=== PATIENT | male | born 1955 | race Caucasian/White ===

== ENCOUNTER 2024-04-14 11:50 | Emergency (ER) | payer MEDICAID ==
[~2024-04-14] VITALS: Ht 172.7 cm; Wt 72.6 kg
[2024-04-14 13:29] LABS: *BILIRUBIN,URIN NEGATIVE (NEGATIVE); *BLOOD, URINE NEGATIVE (NEGATIVE); *CLARITY,URINE CLEAR (CLEAR); *COLOR,URINE YELLOW (YELLOW); *KETONES,URINE NEGATIVE (NEGATIVE); *PROTEIN,URINE NEGATIVE (NEGATIVE); *UROBILINOGEN,URINE 0.2 E.U./dl (NORMAL); LEUKOCYTE ESTERASE ,URINE NEGATIVE (NEGATIVE); NITRITE, URINE NEGATIVE (NEGATIVE); UGLUCOSE NEGATIVE (NEGATIVE)
[2024-04-14] MEDS ORDERED: SULF1TAB48 PO (13:57)
[2024-04-14] MEDS ORDERED: TRAM50TA2 PO (14:00)
[2024-04-14 14:27] VITALS: BP 146/89; O2SAT 97
== END 2024-04-14 14:28 | disposition home or self-care (01) ==
LOC: ER 11:50
DX: M48.061 Spinal stenosis, lumbar region without neurogenic claudication (principal); L08.9 Local infection of the skin and subcutaneous tissue, unspecified; Z79.899 Other long term (current) drug therapy; Z88.0 Allergy status to penicillin
CPT/HCPCS: A4606; A4663

== ENCOUNTER 2024-04-30 14:58 | Emergency (ER) | payer MEDICAID, OTHER ==
[~2024-04-30] VITALS: Ht 170.2 cm; Wt 77.1 kg
[~2024-04-30 14:58] MED LIST: SULF1TAB48 PO; TRAM50TA2 PO
[2024-04-30] MEDS ORDERED: SUCR1TAB31 PO (15:45)
[2024-04-30] MEDS ORDERED: TAMS-3 PO (15:45)
[2024-04-30] MEDS ORDERED: NITR100C12 PO (15:45)
[2024-04-30 15:48] LABS: BASOPHILS % (AUTO) 0.5 % (0.0-2.0); EOSINOPHILS # (AUTO) 0.1 K/uL (0.0-0.7); EOSINOPHILS % (AUTO) 0.9 % (0.0-7.0); HEMATOCRIT 37.4 % (36.7-47.1); HEMOGLOBIN 12.6 g/dL (12.5-16.3); LYMPHOCYTES # (AUTO) 1.7 K/uL (0.8-4.8); LYMPHOCYTES % (AUTO) 24.6 % (20.5-51.5); MEAN CORPUSCULAR HEMOGLOBIN 31.1 uug (23.8-33.4); MEAN CORPUSCULAR HGB CONC 34 g/dL (32.5-36.3); MEAN CORPUSCULAR VOLUME 92.1 fL (73.0-96.2); MONOCYTES # (AUTO) 0.4 K/uL (0.1-1.30); MONOCYTES % (AUTO) 5.4 % (0.0-11.0); NEUTROPHILS # (AUTO) 4.8 K/uL (1.8-8.9); NEUTROPHILS % (AUTO) 68.6 % (38.5-71.5); PLATELET COUNT (AUTO) 315 K/uL (152-348); RED BLOOD CELL COUNT(AUTO) 4.06 MIL/uL (4.06-5.63); RED CELL DISTRIBUTION WIDTH 15.5 % (12.1-16.2)
[2024-04-30 15:56] LABS: DIFFERENTIAL COMMENT 1
[2024-04-30 15:59] LABS: CALCIUM 8.7 mg/dL (8.5-10.1); POTASSIUM 3.2 mmol/L (3.5-5.1)
[2024-04-30 16:02] LABS: *BILIRUBIN,URIN NEGATIVE (NEGATIVE); *BLOOD, URINE NEGATIVE (NEGATIVE); *CLARITY,URINE CLEAR (CLEAR); *COLOR,URINE YELLOW (YELLOW); *KETONES,URINE NEGATIVE (NEGATIVE); *PROTEIN,URINE 1+ (NEGATIVE); *UROBILINOGEN,URINE 0.2 E.U./dl (NORMAL); LEUKOCYTE ESTERASE ,URINE NEGATIVE (NEGATIVE); NITRITE, URINE NEGATIVE (NEGATIVE); UGLUCOSE NEGATIVE (NEGATIVE)
[2024-04-30 16:05] LABS: ALBUMIN 3.7 g/dL (3.4-5.0); BILIRUBIN,TOTAL 0.4 mg/dL (0.2-1.0); TOTAL PROTEIN, SERUM 6.8 g/dL (6.4-8.2)
[2024-04-30 16:19] LABS: BACTERIA,URINE FEW /HPF (NONE SEEN); SQUAMOUS EPITHELIAL CELL,UR FEW /HPF (NONE SEEN)
[2024-04-30] MEDS ORDERED: POTASSIUM CHLORIDE 20 MEQ TAB.PRT.SR ONE (16:27)
[2024-04-30] MEDS: POTASSIUM CHLORIDE 20 MEQ TAB.PRT.SR PO ONE (16:33)
[2024-04-30] MEDS ORDERED: TRAM50TA2 PO (16:40)
[2024-04-30] MEDS ORDERED: DIPH1TAB PO (16:40)
[2024-04-30 17:14] VITALS: BP 145/82; O2SAT 99
== END 2024-04-30 16:55 | disposition home or self-care (01) ==
LOC: ER 14:59
DX: M54.50 Low back pain, unspecified (principal); G89.29 Other chronic pain; E87.6 Hypokalemia; R19.7 Diarrhea, unspecified; J45.909 Unspecified asthma, uncomplicated; Z88.0 Allergy status to penicillin
CPT/HCPCS: 36415; 85025; A4606; A4663

== ENCOUNTER 2024-05-11 09:31 | Emergency (ER) | payer OTHER ==
[~2024-05-11] VITALS: Ht 170.2 cm; Wt 63.5 kg
[~2024-05-11 09:31] MED LIST changes: +DIPH1TAB PO; +NITR100C12 PO; +SUCR1TAB31 PO; +TAMS-3 PO
[2024-05-11] MEDS ORDERED: CEFTRIAXONE /D5W 50ML IVPB **ER PYXIS IV ONE (10:09)
[2024-05-11] MEDS ORDERED: AZITHROMYCIN 250 MG TABLET ONE ×2 (10:10→10:19)
[2024-05-11] MEDS: AZITHROMYCIN 250 MG TABLET PO ONE (10:32)
[2024-05-11] MEDS: CEFTRIAXONE 1 G in IV DEXTROSE 5% 50 ML IV ONE (10:39)
[2024-05-11] MEDS: IV NORMAL SALINE 1000 ML BAG IV ONE (10:39)
[2024-05-11 10:40] LABS: *BILIRUBIN,URIN NEGATIVE (NEGATIVE); *CLARITY,URINE CLEAR (CLEAR); *COLOR,URINE YELLOW (YELLOW); *KETONES,URINE NEGATIVE (NEGATIVE); *PROTEIN,URINE NEGATIVE (NEGATIVE); *UROBILINOGEN,URINE 0.2 E.U./dl (NORMAL); LEUKOCYTE ESTERASE ,URINE NEGATIVE (NEGATIVE); NITRITE, URINE NEGATIVE (NEGATIVE); UGLUCOSE NEGATIVE (NEGATIVE)
[2024-05-11 10:57] LABS: ALANINE AMINOTRANSFERASE 36 U/L (16-63); ALBUMIN 3.7 g/dL (3.4-5.0); ALKALINE PHOSPHATASE 121 U/L (50-136); ASPARTATE AMINOTRANSFERASE 27 U/L (15-37); BILIRUBIN,DIRECT 0.1 mg/dL (0.0-0.2); BILIRUBIN,TOTAL 0.6 mg/dL (0.2-1.0); CALCIUM 8.5 mg/dL (8.5-10.1); CARBON DIOXIDE 25 mmol/L (21-32); CHLORIDE 108 mmol/L (98-107); CREATININE 0.7 mg/dL (0.6-1.3); GLUCOSE 95 mg/dL (74-106); NT-PRO BNP 61 pg/mL (0-125); POTASSIUM 3.4 mmol/L (3.5-5.1); SODIUM SERUM 141 mmol/L (136-145); UREA NITROGEN, BLOOD 11 mg/dL (7-18)
[2024-05-11 11:04] LABS: *BLOOD, URINE TRACE (NEGATIVE)
[2024-05-11 11:08] LABS: BASOPHILS % (AUTO) 0.6 % (0.0-2.0); EOSINOPHILS % (AUTO) 0.9 % (0.0-7.0); HEMOGLOBIN 12.6 g/dL (12.5-16.3); LYMPHOCYTES # (AUTO) 1.1 K/uL (0.8-4.8); LYMPHOCYTES % (AUTO) 22.8 % (20.5-51.5); MEAN CORPUSCULAR HEMOGLOBIN 31.7 uug (23.8-33.4); MEAN CORPUSCULAR HGB CONC 34 g/dL (32.5-36.3); MEAN CORPUSCULAR VOLUME 92.8 fL (73.0-96.2); MONOCYTES # (AUTO) 0.3 K/uL (0.1-1.30); MONOCYTES % (AUTO) 5.5 % (0.0-11.0); NEUTROPHILS # (AUTO) 3.5 K/uL (1.8-8.9); NEUTROPHILS % (AUTO) 70.2 % (38.5-71.5); PLATELET COUNT (AUTO) 279 K/uL (152-348); RED BLOOD CELL COUNT(AUTO) 3.99 MIL/uL (4.06-5.63); RED CELL DISTRIBUTION WIDTH 15.3 % (12.1-16.2); WHITE BLOOD COUNT (AUTO) 4.9 K/uL (3.6-10.2)
[2024-05-11 11:19] LABS: DIFFERENTIAL COMMENT 1
[2024-05-11] MEDS ORDERED: DEXAMETHASONE SOD PHOSPHATE 4 MG INJ ONE (11:30)
[2024-05-11] MEDS: DEXAMETHASONE SOD PHOSPHATE 4 MG INJ IV ONE (11:31)
[2024-05-11] MEDS ORDERED: AZIT500T PO (11:45)
[2024-05-11] MEDS ORDERED: PRED50TA PO (11:45)
[2024-05-11 11:56] VITALS: BP 125/69; O2SAT 98
[2024-05-11 13:10] LABS: RBC,URINE 0-3 /HPF (0-3)
[2024-05-11 13:11] LABS: BACTERIA,URINE FEW /HPF (NONE SEEN); SQUAMOUS EPITHELIAL CELL,UR FEW /HPF (NONE SEEN); URINE AMORPHOUS URATE MODERATE /HPF; WBC,URINE 0-3 /HPF (0-3)
[2024-05-12] MEDS ORDERED: OXYC-128 PO (11:43)
== END 2024-05-11 11:53 | disposition home or self-care (01) ==
LOC: ER 09:31
DX: J18.9 Pneumonia, unspecified organism (principal); G89.29 Other chronic pain; M54.9 Dorsalgia, unspecified; R06.02 Shortness of breath; J45.909 Unspecified asthma, uncomplicated; Z20.822 Contact with and (suspected) exposure to COVID-19; Z79.52 Long term (current) use of systemic steroids; Z88.0 Allergy status to penicillin
CPT/HCPCS: 99285; 96365; 71045; 96375; 87426; 87804; 80076; 80048; 81001; 83880; 85025; 84145; 85730; 87040 ×2; 84484; 36415; 93005; 83605; J0696; J1100; J7040; A4606; A4663; Q0144

== ENCOUNTER 2024-05-12 10:23 | Emergency (ER) | payer OTHER ==
[~2024-05-12] VITALS: Ht 165.1 cm; Wt 63.5 kg
[~2024-05-12 10:23] MED LIST changes: +AZIT500T PO; +PRED50TA PO
[2024-05-12] MEDS: OXYCODONE/APAP 5-325 MG TABLET PO ONE (11:35)
[2024-05-12] MEDS ORDERED: OXYCODONE/APAP 5-325 MG TABLET ONE (11:35)
[2024-05-12] MEDS ORDERED: OXYC-128 PO (11:43)
[2024-05-12 13:00] VITALS: BP 147/78; O2SAT 99
== END 2024-05-12 13:01 | disposition home or self-care (01) ==
LOC: ER 10:23
DX: M48.061 Spinal stenosis, lumbar region without neurogenic claudication (principal); M54.50 Low back pain, unspecified; J45.909 Unspecified asthma, uncomplicated; Z79.52 Long term (current) use of systemic steroids; Z79.899 Other long term (current) drug therapy; Z88.0 Allergy status to penicillin
CPT/HCPCS: 98960; A4606; A4663

== ENCOUNTER 2024-12-17 12:13 | Emergency (ER) | payer OTHER ==
[~2024-12-17] VITALS: Ht 165.1 cm; Wt 68.0 kg
[~2024-12-17 12:13] MED LIST changes: +CLIN300C12 PO; +CYCL5TAB PO; +IBUP-1955 PO; +LIDO30AD10 TP; +METH4TAB3 PO; +OXYC-128 PO
[2024-12-17] MEDS ORDERED: KETOROLAC TROMETHAMINE 15 MG INJ ONE (12:59)
[2024-12-17] MEDS: KETOROLAC TROMETHAMINE 15 MG INJ IM ONE (13:26)
[2024-12-17] MEDS ORDERED: TRAM50TA2 PO (13:58)
[2024-12-17 14:15] VITALS: BP 138/80; TEMP 97; O2SAT 96
== END 2024-12-17 14:16 | disposition home or self-care (01) ==
LOC: ER 12:21
DX: M54.42 Lumbago with sciatica, left side (principal); M54.41 Lumbago with sciatica, right side; G89.29 Other chronic pain; I10 Essential (primary) hypertension; I25.10 Atherosclerotic heart disease of native coronary artery without angina pectoris; J45.909 Unspecified asthma, uncomplicated; Z79.52 Long term (current) use of systemic steroids; Z79.899 Other long term (current) drug therapy; Z88.0 Allergy status to penicillin
CPT/HCPCS: 99285; 74176; 96372; J1885; A4606; A4663

== ENCOUNTER 2024-12-21 06:25 | Emergency (ER) | payer OTHER ==
[~2024-12-21] VITALS: Ht 172.7 cm; Wt 83.9 kg
[2024-12-21 07:44] LABS: BASOPHILS % (AUTO) 0.4 % (0.0-2.0); EOSINOPHILS % (AUTO) 0.1 % (0.0-7.0); HEMATOCRIT 36.6 % (36.7-47.1); HEMOGLOBIN 12.7 g/dL (12.5-16.3); LYMPHOCYTES # (AUTO) 1.1 K/uL (0.8-4.8); LYMPHOCYTES % (AUTO) 14.2 % (20.5-51.5); MEAN CORPUSCULAR HEMOGLOBIN 31.8 uug (23.8-33.4); MEAN CORPUSCULAR HGB CONC 35 g/dL (32.5-36.3); MEAN CORPUSCULAR VOLUME 91.8 fL (73.0-96.2); MONOCYTES # (AUTO) 0.5 K/uL (0.1-1.30); MONOCYTES % (AUTO) 6.2 % (0.0-11.0); NEUTROPHILS # (AUTO) 6.2 K/uL (1.8-8.9); NEUTROPHILS % (AUTO) 79.1 % (38.5-71.5); PLATELET COUNT (AUTO) 292 K/uL (152-348); RED BLOOD CELL COUNT(AUTO) 3.98 MIL/uL (4.06-5.63); RED CELL DISTRIBUTION WIDTH 15.1 % (12.1-16.2); WHITE BLOOD COUNT (AUTO) 7.9 K/uL (3.6-10.2)
[2024-12-21 07:48] LABS: DIFFERENTIAL COMMENT 1
[2024-12-21 07:51] LABS: CALCIUM 9.5 mg/dL (8.5-10.1); CARBON DIOXIDE 22 mmol/L (21-32); CHLORIDE 108 mmol/L (98-107); CREATININE 0.9 mg/dL (0.6-1.3); GLUCOSE 111 mg/dL (74-106); POTASSIUM 4.2 mmol/L (3.5-5.1); SODIUM SERUM 142 mmol/L (136-145); UREA NITROGEN, BLOOD 24 mg/dL (7-18)
[2024-12-21 07:58] LABS: ALANINE AMINOTRANSFERASE 54 U/L (16-63); ALKALINE PHOSPHATASE 144 U/L (50-136); ASPARTATE AMINOTRANSFERASE 28 U/L (15-37); BILIRUBIN,DIRECT 0.2 mg/dL (0.0-0.2); BILIRUBIN,TOTAL 0.6 mg/dL (0.2-1.0); TOTAL PROTEIN, SERUM 7.5 g/dL (6.4-8.2)
[2024-12-21] MEDS ORDERED: ASPI81TA31 PO (08:38)
[2024-12-21] MEDS ORDERED: ACET-2812 PO (08:38)
[2024-12-21] MEDS ORDERED: FAMO20TA8 PO (08:38)
[2024-12-21] MEDS ORDERED: CLOP75TA15 PO (08:38)
[2024-12-21] MEDS ORDERED: ISOS30TA86 PO (08:38)
[2024-12-21] MEDS ORDERED: PRED20TA PO (08:38)
[2024-12-21] MEDS ORDERED: CARB10DR5 OP (08:38)
[2024-12-21] MEDS ORDERED: CYCL5TAB PO (08:38)
[2024-12-21] MEDS ORDERED: EMPA10TA PO (08:38)
[2024-12-21] MEDS ORDERED: OXYC5CAP18 PO (08:38)
[2024-12-21] MEDS ORDERED: LOSA25TA27 PO (08:38)
[2024-12-21] MEDS ORDERED: NAPR-1009 PO (08:38)
[2024-12-21] MEDS ORDERED: ATOR80TA PO (08:38)
[2024-12-21] MEDS ORDERED: IBUP-1490 PO (08:38)
[2024-12-21] MEDS ORDERED: SPIR25TA6 PO (08:38)
[2024-12-21] MEDS ORDERED: CARV3.122 PO (08:38)
[2024-12-21] MEDS ORDERED: CLIN300C12 PO (08:38)
[2024-12-21] MEDS ORDERED: METH-807 PO (08:38)
[2024-12-21] MEDS ORDERED: LIDO30AD10 TP (08:38)
[2024-12-21] MEDS ORDERED: GABA300C PO (08:38)
[2024-12-21] MEDS ORDERED: DULO30CA2 PO (08:38)
[2024-12-21] MEDS ORDERED: diphenhydrAMINE 50 MG/1 ML VIAL ONE ×2 (09:17→12:25)
[2024-12-21] MEDS ORDERED: MORPHINE SULFATE 4 MG/1 ML DISP.SYRIN ONE (09:18)
[2024-12-21] MEDS: diphenhydrAMINE 50 MG/1 ML VIAL IM ONE (09:23)
[2024-12-21] MEDS: MORPHINE SULFATE 4 MG/1 ML DISP.SYRIN IM ONE (09:24)
[2024-12-21 09:25] LABS: *BILIRUBIN,URIN NEGATIVE (NEGATIVE); *BLOOD, URINE NEGATIVE (NEGATIVE); *CLARITY,URINE CLEAR (CLEAR); *COLOR,URINE YELLOW (YELLOW); *KETONES,URINE NEGATIVE (NEGATIVE); *PROTEIN,URINE TRACE (NEGATIVE); *UROBILINOGEN,URINE 0.2 E.U./dl (NORMAL); LEUKOCYTE ESTERASE ,URINE NEGATIVE (NEGATIVE); NITRITE, URINE NEGATIVE (NEGATIVE); UGLUCOSE 3+ (NEGATIVE)
[2024-12-21 09:26] LABS: BACTERIA,URINE FEW /HPF (NONE SEEN); WBC,URINE 0-3 /HPF (0-3)
[2024-12-21] MEDS: IV NORMAL SALINE 1000 ML BAG IV ONE (11:55)
[2024-12-21] MEDS ORDERED: KETOROLAC TROMETHAMINE 15 MG INJ ONE (12:01)
[2024-12-21] MEDS ORDERED: METOCLOPRAMIDE HCL 10 MG/2 ML VIAL ONE (12:01)
[2024-12-21] MEDS: KETOROLAC TROMETHAMINE 15 MG INJ IVP ONE (12:05)
[2024-12-21] MEDS: METOCLOPRAMIDE HCL 10 MG/2 ML VIAL IV ONE (12:05)
[2024-12-21] MEDS: diphenhydrAMINE 50 MG/1 ML VIAL IV ONE (12:30)
[2024-12-21] MEDS ORDERED: HYDROCORTISONE SOD SUCCINATE 100 MG/2 ML VIAL IV ONE (12:32)
[2024-12-21] MEDS ORDERED: SWABABLE VALVE TRANSFER SET EA MC ONE (12:33)
[2024-12-21] MEDS ORDERED: IOHEXOL 350 100 ML INFUS..BTL ONE (12:33)
[2024-12-21] MEDS: HYDROCORTISONE SOD SUCCINATE 100 MG/2 ML VIAL IV ONE (12:33)
[2024-12-21] MEDS ORDERED: IV NORMAL SALINE 250 ML IV ONE (12:34)
[2024-12-21 15:46] VITALS: BP 134/75; O2SAT 97
== END 2024-12-21 15:30 | disposition home or self-care (01) ==
LOC: ER 06:25
DX: R51.9 Headache, unspecified (principal); R42 Dizziness and giddiness; G89.29 Other chronic pain; M54.42 Lumbago with sciatica, left side; M54.41 Lumbago with sciatica, right side; M54.2 Cervicalgia; I10 Essential (primary) hypertension; J45.909 Unspecified asthma, uncomplicated; Z79.02 Long term (current) use of antithrombotics/antiplatelets; Z79.52 Long term (current) use of systemic steroids; Z79.82 Long term (current) use of aspirin; Z79.84 Long term (current) use of oral hypoglycemic drugs; Z79.899 Other long term (current) drug therapy; Z88.0 Allergy status to penicillin; Z88.5 Allergy status to narcotic agent; Z91.041 Radiographic dye allergy status; Z95.5 Presence of coronary angioplasty implant and graft; Z87.19 Personal history of other diseases of the digestive system
CPT/HCPCS: 99285; 70496; 96374; 96375; 71045; 80076; 80048; 81001; 85025; 85730; 87086; 84484; 36415; 70498; 93005; 96372 ×2; 70450; 36410; J1885; J1200 ×2; J1720; J2765; Q9967; J2270; J7040; A4606; A4663

== ENCOUNTER 2024-12-26 17:03 | Emergency (ER) | payer OTHER ==
[~2024-12-26] VITALS: Ht 172.7 cm; Wt 63.5 kg
[~2024-12-26 17:03] MED LIST changes: +ACET-2812 PO; +ASPI81TA31 PO; +ATOR80TA PO; -AZIT500T PO; +CARB10DR5 OP; +CARV3.122 PO; +CLOP75TA15 PO; -DIPH1TAB PO; +DULO30CA2 PO; +EMPA10TA PO; +FAMO20TA8 PO; +GABA300C PO; +IBUP-1490 PO; -IBUP-1955 PO; +ISOS30TA86 PO; +LOSA25TA27 PO; +METH-807 PO; -METH4TAB3 PO; +NAPR-1009 PO; -NITR100C12 PO; +OXYC5CAP18 PO; +PRED20TA PO; -PRED50TA PO; +SPIR25TA6 PO; -SUCR1TAB31 PO; -SULF1TAB48 PO; -TAMS-3 PO; -TRAM50TA2 PO
[2024-12-26] MEDS ORDERED: KETOROLAC TROMETHAMINE 30 MG INJ ONE (17:35)
[2024-12-26] MEDS: KETOROLAC TROMETHAMINE 30 MG INJ IM ONE (17:38)
[2024-12-26] MEDS ORDERED: TRAM50TA2 PO (18:20)
[2024-12-26 18:39] VITALS: BP 101/52; TEMP 97.9; O2SAT 96
== END 2024-12-26 18:40 | disposition home or self-care (01) ==
LOC: ER 17:03
DX: G89.29 Other chronic pain (principal); M54.50 Low back pain, unspecified; J45.909 Unspecified asthma, uncomplicated; Z79.02 Long term (current) use of antithrombotics/antiplatelets; Z79.52 Long term (current) use of systemic steroids; Z79.82 Long term (current) use of aspirin; Z79.84 Long term (current) use of oral hypoglycemic drugs; Z79.899 Other long term (current) drug therapy; Z88.0 Allergy status to penicillin; Z88.5 Allergy status to narcotic agent; Z91.041 Radiographic dye allergy status; Z87.19 Personal history of other diseases of the digestive system
CPT/HCPCS: 99285; 72131; 96372; J1885; A4606; A4663

== ENCOUNTER 2025-01-19 07:17 | Emergency (ER) | payer OTHER ==
[~2025-01-19] VITALS: Ht 167.6 cm; Wt 63.5 kg
[~2025-01-19 07:17] MED LIST changes: +TRAM50TA2 PO
[2025-01-19 08:00] LABS: HEMATOCRIT 45.1 % (36.7-47.1); HEMOGLOBIN 14.6 g/dL (12.5-16.3); MEAN CORPUSCULAR HEMOGLOBIN 29.9 uug (23.8-33.4); MEAN CORPUSCULAR HGB CONC 33 g/dL (32.5-36.3); MEAN CORPUSCULAR VOLUME 91.9 fL (73.0-96.2); MONOCYTES # (AUTO) 0.4 K/uL (0.1-1.30); PLATELET COUNT (AUTO) 276 K/uL (152-348); RED CELL DISTRIBUTION WIDTH 16.2 % (12.1-16.2); WHITE BLOOD COUNT (AUTO) 5.4 K/uL (3.6-10.2)
[2025-01-19 08:07] LABS: CALCIUM 9.1 mg/dL (8.5-10.1); CREATININE 0.8 mg/dL (0.6-1.3)
[2025-01-19 08:13] LABS: BILIRUBIN,DIRECT 0.2 mg/dL (0.0-0.2); BILIRUBIN,TOTAL 0.5 mg/dL (0.2-1.0); TOTAL PROTEIN, SERUM 7.3 g/dL (6.4-8.2)
[2025-01-19 08:23] LABS: *BILIRUBIN,URIN NEGATIVE (NEGATIVE); *BLOOD, URINE NEGATIVE (NEGATIVE); *CLARITY,URINE CLEAR (CLEAR); *COLOR,URINE YELLOW (YELLOW); *KETONES,URINE TRACE (NEGATIVE); *PROTEIN,URINE NEGATIVE (NEGATIVE); *UROBILINOGEN,URINE 0.2 E.U./dl (NORMAL); LEUKOCYTE ESTERASE ,URINE NEGATIVE (NEGATIVE); NITRITE, URINE NEGATIVE (NEGATIVE)
[2025-01-19 08:24] LABS: BASOPHILS % (AUTO) 0.7 % (0.0-2.0); EOSINOPHILS % (AUTO) 0.3 % (0.0-7.0); LYMPHOCYTES % (AUTO) 19.8 % (20.5-51.5); MONOCYTES % (AUTO) 8.5 % (0.0-11.0); NEUTROPHILS # (AUTO) 3.7 K/uL (1.8-8.9); NEUTROPHILS % (AUTO) 70.7 % (38.5-71.5)
[2025-01-19 08:27] LABS: UGLUCOSE 2+ (NEGATIVE)
[2025-01-19 08:28] LABS: DIFFERENTIAL COMMENT 0
[2025-01-19 09:05] LABS: BACTERIA,URINE FEW /HPF (NONE SEEN); SQUAMOUS EPITHELIAL CELL,UR FEW /HPF (NONE SEEN); WBC,URINE 0-3 /HPF (0-3)
[2025-01-19] MEDS ORDERED: ONDA4TAB5 PO (10:00)
[2025-01-19] MEDS ORDERED: DIPH1TAB PO (10:00)
[2025-01-19] MEDS ORDERED: TRAM50TA2 PO (10:10)
[2025-01-19 10:15] VITALS: BP 123/66; TEMP 98.1; O2SAT 97
== END 2025-01-19 10:18 | disposition home or self-care (01) ==
LOC: ER 07:17
DX: A08.4 Viral intestinal infection, unspecified (principal); G89.29 Other chronic pain; M54.50 Low back pain, unspecified; R14.0 Abdominal distension (gaseous); J45.909 Unspecified asthma, uncomplicated; Z79.02 Long term (current) use of antithrombotics/antiplatelets; Z79.52 Long term (current) use of systemic steroids; Z79.82 Long term (current) use of aspirin; Z79.84 Long term (current) use of oral hypoglycemic drugs; Z79.899 Other long term (current) drug therapy; Z88.0 Allergy status to penicillin; Z88.5 Allergy status to narcotic agent; Z91.041 Radiographic dye allergy status; Z87.19 Personal history of other diseases of the digestive system
CPT/HCPCS: 99284; 74176; 80076; 80048; 81001; 85025; 36415; 83605; J7040; A4606; A4663